=== PATIENT | male | born 1955 | race Caucasian/White ===

== ENCOUNTER 2018-01-10 11:29 | Emergency (ER) | payer MEDICARE, MEDICAID ==
[~2018-01-10] VITALS: Ht 175.3 cm; Wt 84.1 kg
[~2018-01-10 11:29] MED LIST: AMOX-580 PO; NORCO10T PO
[2018-01-10 11:48] VITALS: BP 133/67
== END 2018-01-10 14:50 | disposition home or self-care (01) ==
LOC: ER 11:31
DX: M54.5 Low back pain (principal); Z88.8 Allergy status to other drugs, medicaments and biological substances
CPT/HCPCS: 72190; 99284

== ENCOUNTER 2018-08-09 08:33 | Day surgery (SDC) | payer MEDICARE, MEDICAID ==
[~2018-08-09] VITALS: Ht 175.3 cm; Wt 88.6 kg
[2018-08-09 09:00] VITALS: BP 167/86
[2018-08-09] MEDS ORDERED: MIDAZolam 5mg/5ml vial ONE (09:14)
[2018-08-09] MEDS ORDERED: fentaNYL/PF 50MCG/1 ML 2ML syringe ONE (09:14)
[2018-08-09] MEDS ORDERED: ACET-812 PO (09:46)
[2018-08-09] MEDS ORDERED: POLY17PO10 PO (09:47)
[2018-08-09] MEDS ORDERED: ANUHCCR (09:50)
[2018-08-09] MEDS ORDERED: PRAMOXINE TOP (09:51)
[2018-08-09 10:22] VITALS: BP 113/69
[2018-08-09 10:32] VITALS: BP 124/81
[2018-08-09 10:42] VITALS: BP 123/60
[2018-08-09 10:52] VITALS: BP 119/69
== END 2018-08-09 11:22 | disposition home or self-care (01) ==
LOC: GI LAB 08:33
PROVIDERS: ATTEND Internal Medicine Gastroenterology
DX: D12.8 Benign neoplasm of rectum (principal); D12.3 Benign neoplasm of transverse colon; K57.30 Diverticulosis of large intestine without perforation or abscess without bleeding; G80.8 Other cerebral palsy; Z90.49 Acquired absence of other specified parts of digestive tract; Z79.891 Long term (current) use of opiate analgesic; Z79.899 Other long term (current) drug therapy; Z88.8 Allergy status to other drugs, medicaments and biological substances; Z98.890 Other specified postprocedural states; Z83.3 Family history of diabetes mellitus
CPT/HCPCS: 45385; 99153; G0500; J2250; J3010; J7030; 88305; A4620

== ENCOUNTER 2018-11-19 14:52 | Inpatient (IN) | payer MEDICARE, MEDICAID ==
[~2018-11-19] VITALS: Ht 175.3 cm; Wt 86.4 kg
[~2018-11-19 14:52] MED LIST changes: +ACET-812 PO; -AMOX-580 PO; +ANUHCCR RC; -NORCO10T PO; +POLY17PO10 PO; +PRAMOXINE TOP
[2018-11-19] MEDS ORDERED: acetaminophen 325mg tablet PO STA (16:37)
[2018-11-19] MEDS ORDERED: normal saline 1000ML IV soln IV ONE (16:40)
[2018-11-19] MEDS ORDERED: methylPREDNISolone sod succ 125mg/2ml vial IV ONE (16:40)
[2018-11-19] MEDS ORDERED: ipratropium/albuterol 3ml nebule NEB ONE (16:40)
[2018-11-19 16:59] LABS: BASOPHILS # (AUTO) 0.2 X10'3 (0-0.2); BASOPHILS % (AUTO) 1.8 % (0-1); EOSINOPHILS % (AUTO) 0.4 % (0-6); HEMATOCRIT 46.5 % (42.0-52.0); HEMOGLOBIN 14.8 g/dl (14.0-17.9); LYMPHOCYTES # (AUTO) 0.8 X10'3 (1.1-4.8); MEAN CORPUSCULAR HEMOGLOBIN 27.2 PG (27.0-31.0); MEAN CORPUSCULAR HGB CONC 31.8 % (33.0-36.5); MEAN CORPUSCULAR VOLUME 85.5 FL (78-98); MEAN PLATELET VOLUME 8.9 FL (7.4-10.4); MONOCYTES # (AUTO) 1.4 X10'3 (0-0.9); MONOCYTES % (AUTO) 15.4 % (2-12); NEUTROPHILS # (AUTO) 6.6 X10'3 (1.8-7.7); NEUTROPHILS % (AUTO) 73.4 % (42-75); PLATELET COUNT 223 X10'3 (140-440); RED BLOOD COUNT 5.44 X10'6 (4.70-6.10); RED CELL DISTRIBUTION WIDTH 12.8 % (11.5-14.5)
[2018-11-19] MEDS ORDERED: levoFLOXACIN-Levaquin 750MG/D5 150 ML IV ONE (17:10)
[2018-11-19] MEDS ORDERED: oseltamivir phos 75mg capsule PO ONE (17:10)
[2018-11-19 17:24] LABS: MICROCYTOSIS 1+; PLATELET ESTIMATE NORMAL; TOTAL CELLS COUNTED 100
[2018-11-19 17:25] LABS: ALANINE AMINOTRANSFERASE 56 U/L (12-78); ALBUMIN 2.8 G/DL (3.4-5.0); ALBUMIN/GLOBULIN RATIO 0.7 (1.1-1.5); ALKALINE PHOSPHATASE 154 IU/L (46-116); ANION GAP 11 (8-16); ASPARTATE AMINO TRANSFERASE 37 U/L (10-37); BILIRUBIN,TOTAL 0.8 MG/DL (0.1-1.0); BLOOD UREA NITROGEN 12 MG/DL (7-18); BUN/CREATININE RATIO 17.1 (5.4-32.0); CALCIUM 8.4 MG/DL (8.5-10.1); CHLORIDE 99 MMOL/L (99-107); GLUCOSE 94 MG/DL (70-104); POTASSIUM 3.1 MMOL/L (3.5-5.1); SODIUM 138 MMOL/L (135-145); TOTAL CARBON DIOXIDE 28.5 MMOL/L (24-32); TOTAL PROTEIN 7.1 G/DL (6.4-8.2); eGFR > 90 ML/MIN
[2018-11-19] MEDS ORDERED: ondansetron/PF 4mg/2ml inj IV PRN (17:50)
[2018-11-19] MEDS ORDERED: HYDROcodone/acetaminophen 5mg/325mg tablet PO PRN (17:50)
[2018-11-19] MEDS ORDERED: magnesium hydroxide 30ml (MOM) UD suspension PO PRN (17:50)
[2018-11-19] MEDS ORDERED: HYDROcodone/acetaminophen 10/325mg tab PO PRN (17:50)
[2018-11-19] MEDS ORDERED: acetaminophen 325mg tablet PO PRN ×2 (17:50)
[2018-11-19] MEDS ORDERED: potassium Cl 40MEQ/NS 500ml 500 ML IV PRN ×2 (17:50)
[2018-11-19] MEDS ORDERED: mag hydrox/Alum hydrox/simeth 30ml oral suspension PO PRN (17:50)
[2018-11-19] MEDS ORDERED: potassium Cl 20 mEq SR tablet PO PRN (17:50)
[2018-11-19] MEDS ORDERED: HC A30CR12 RC (18:12)
[2018-11-19] MEDS ORDERED: albuterol 2.5 MG/3 ML nebule NEB ONE (18:40)
[2018-11-19] MEDS: normal saline 1000ml 1,000 ML IV SCH (19:04)
[2018-11-19 19:17] LABS: CLARITY,URINE CLEAR (Clear); COLOR,URINE YELLOW (Yellow); GLUCOSE, URINE NEGATIVE (Neg); KETONES,URINE >=80 mg/dl (Neg); NITRITES, URINE NEGATIVE (Neg); OCCULT BLOOD,URINE MODERATE (Neg); PROTEIN,URINE 30 mg/dl (Neg); UA COLLECTION TYPE CLN CATCH MIDSTREAM
[2018-11-19 19:18] LABS: LEUKOCYTE ESTERASE ,URINE NEGATIVE (Neg)
[2018-11-19 19:19] LABS: WBC,URINE 0-4 /HPF (0-4)
[2018-11-19 19:20] LABS: BACTERIA,URINE FEW /HPF (Neg); MUCUS STRANDS FEW /LPF (Neg); SQUAMOUS EPITHELIAL CELL,UR FEW /LPF (FEW)
[2018-11-19] MEDS ORDERED: albuterol 2.5 MG/3 ML nebule NEB PRN (20:50)
[2018-11-19] MEDS ORDERED: non-formulary drug (Acetaminophen (Tylenol Extra Strength) 1 TABLET) PO PRN (20:50)
[2018-11-19] MEDS ORDERED: polyethylene glycol 3350 17gm powd pack PO PRN (20:50)
[2018-11-19] MEDS ORDERED: temazepam 15mg capsule PO PRN (21:00)
[2018-11-19] MEDS ORDERED: benzonatate 100mg capsule PO PRN (22:25)
--- NOTE | 2018-11-19 22:55 | NUR ---
Received report from Amparo GONZALEZ. Room ready, waiting for patient to arrive.
[2018-11-20] VITALS: BP 125/71
[2018-11-20 05:31] LABS: BASOPHILS % (AUTO) 0.1 % (0-1); EOSINOPHILS % (AUTO) 0.1 % (0-6); HEMATOCRIT 37.4 % (42.0-52.0); HEMOGLOBIN 12.7 g/dl (14.0-17.9); LYMPHOCYTES # (AUTO) 0.4 X10'3 (1.1-4.8); LYMPHOCYTES % (AUTO) 7.1 % (21-51); MEAN CORPUSCULAR HEMOGLOBIN 28.8 PG (27.0-31.0); MEAN CORPUSCULAR VOLUME 84.7 FL (78-98); MEAN PLATELET VOLUME 9.3 FL (7.4-10.4); MONOCYTES # (AUTO) 0.1 X10'3 (0-0.9); MONOCYTES % (AUTO) 2.7 % (2-12); NEUTROPHILS # (AUTO) 4.9 X10'3 (1.8-7.7); PLATELET COUNT 186 X10'3 (140-440); RED BLOOD COUNT 4.41 X10'6 (4.70-6.10); RED CELL DISTRIBUTION WIDTH 12.9 % (11.5-14.5); WHITE BLOOD COUNT 5.4 X10'3 (4.5-11.0)
[2018-11-20 05:56] LABS: ALBUMIN 2.2 G/DL (3.4-5.0); ANION GAP 12 (8-16); BLOOD UREA NITROGEN 11 MG/DL (7-18); CALCIUM 7.7 MG/DL (8.5-10.1); CHLORIDE 107 MMOL/L (99-107); CREATININE 0.55 MG/DL (0.60-1.10); GLUCOSE 156 MG/DL (70-104); POTASSIUM 3.8 MMOL/L (3.5-5.1); SODIUM 141 MMOL/L (135-145); TOTAL CARBON DIOXIDE 21.7 MMOL/L (24-32); eGFR > 90 ML/MIN
--- NOTE | 2018-11-20 06:30 | NUR ---
Patient in room [facility]. I have received report from LISA MADDEN and had the opportunity to ask questions and assume patient care.
--- NOTE | 2018-11-20 06:33 | NUR ---
Problems reprioritized. Patient report given, questions answered & plan of care reviewed with Machelle GONZALEZ.
[2018-11-20 07:00] VITALS: BP 120/65
[2018-11-20] MEDS: K and/or MAG REPLACEMENT MC SCH (08:00)
[2018-11-20] MEDS ORDERED: enoxaparin 40mg/0.4ml syringe SUBCUT SCH (08:00)
[2018-11-20] MEDS: enoxaparin 40mg/0.4ml syringe SQ SCH (08:40)
[2018-11-20] MEDS: normal saline 1000ml 1,000 ML IV SCH (10:26)
[2018-11-20 11:18] VITALS: BP 112/60
[2018-11-20] MEDS: levoFLOXACIN 750MG TABLET PO SCH (11:40)
--- NOTE | 2018-11-20 18:30 | NUR ---
Patient in room [facility]. I have received report from LISA Sanchez and had the opportunity to ask questions and assume patient care.
--- NOTE | 2018-11-20 18:30 | NUR ---
Problems reprioritized. Patient report given, questions answered & plan of care reviewed with PT, RN.
[2018-11-20 19:30] VITALS: BP 133/77
[2018-11-20] MEDS: lactobacillus rhamnosus 10,000 MMU CELLS/CAPSULE PO SCH (21:06)
[2018-11-21] VITALS: BP 124/47
[2018-11-21 05:23] LABS: ANION GAP 11 (8-16); BLOOD UREA NITROGEN 17 MG/DL (7-18); BUN/CREATININE RATIO 28.8 (5.4-32.0); CALCIUM 7.6 MG/DL (8.5-10.1); CHLORIDE 108 MMOL/L (99-107); CREATININE 0.59 MG/DL (0.60-1.10); GLUCOSE 130 MG/DL (70-104); POTASSIUM 3.3 MMOL/L (3.5-5.1); SODIUM 143 MMOL/L (135-145); TOTAL CARBON DIOXIDE 24.4 MMOL/L (24-32); eGFR > 90 ML/MIN
[2018-11-21] MEDS: normal saline 1000ml 1,000 ML IV SCH ×2 (05:30→21:16)
[2018-11-21 05:31] LABS: BASOPHILS % (AUTO) 0.1 % (0-1); EOSINOPHILS % (AUTO) 0 % (0-6); HEMATOCRIT 35.7 % (42.0-52.0); HEMOGLOBIN 12.3 g/dl (14.0-17.9); LYMPHOCYTES # (AUTO) 1.3 X10'3 (1.1-4.8); LYMPHOCYTES % (AUTO) 16.7 % (21-51); MEAN CORPUSCULAR HEMOGLOBIN 28.9 PG (27.0-31.0); MEAN CORPUSCULAR HGB CONC 34.3 % (33.0-36.5); MEAN CORPUSCULAR VOLUME 84.2 FL (78-98); MEAN PLATELET VOLUME 9.2 FL (7.4-10.4); MONOCYTES # (AUTO) 0.9 X10'3 (0-0.9); MONOCYTES % (AUTO) 12.2 % (2-12); NEUTROPHILS # (AUTO) 5.4 X10'3 (1.8-7.7); PLATELET COUNT 261 X10'3 (140-440); RED BLOOD COUNT 4.25 X10'6 (4.70-6.10); RED CELL DISTRIBUTION WIDTH 12.8 % (11.5-14.5); WHITE BLOOD COUNT 7.6 X10'3 (4.5-11.0)
--- NOTE | 2018-11-21 06:30 | NUR ---
Patient in room [facility]. I have received report from Pat RN and had the opportunity to ask questions and assume patient care.
--- NOTE | 2018-11-21 06:30 | NUR ---
report given to LISA Massey
[2018-11-21 07:00] VITALS: BP 102/46
[2018-11-21] MEDS: K and/or MAG REPLACEMENT MC SCH (08:00)
[2018-11-21] MEDS: lactobacillus rhamnosus 10,000 MMU CELLS/CAPSULE PO SCH ×2 (09:05→19:59)
[2018-11-21] MEDS: potassium Cl 20 mEq SR tablet PO PRN ×2 (09:06→19:59)
[2018-11-21] MEDS: enoxaparin 40mg/0.4ml syringe SQ SCH (09:07)
--- NOTE | 2018-11-21 10:50 | NUR ---
Heel protectors applied on patient's bilateral heels per patient's request. Family at bedside
[2018-11-21 11:00] VITALS: BP 101/55
[2018-11-21] MEDS: levoFLOXACIN 750MG TABLET PO SCH (11:25)
--- NOTE | 2018-11-21 18:36 | NUR ---
Problems reprioritized. Patient report given, questions answered & plan of care reviewed with Montserrat GONZALEZ.
--- NOTE | 2018-11-21 18:46 | NUR ---
Patient in room [facility]. I have received report from Darlin GONZALEZ and had the opportunity to ask questions and assume patient care.
[2018-11-21 20:00] VITALS: BP 116/65
--- NOTE | 2018-11-21 21:30 | NUR ---
pt has strong cough but can't always get sectrions all the way out. Set up suction with pollo at bedside to help collect secretions.
[2018-11-21 23:00] VITALS: BP 112/63
--- NOTE | 2018-11-22 06:20 | NUR ---
Problems reprioritized. Patient report given, questions answered & plan of care reviewed with Shilpa GONZALEZ. Pt currently asleep on his left side with no signs of distress.
--- NOTE | 2018-11-22 06:22 | NUR ---
Patient in room [facility]. I have received report from Montserrat GONZALEZ and had the opportunity to ask questions and assume patient care.
[2018-11-22 06:33] LABS: ANION GAP 8 (8-16); BLOOD UREA NITROGEN 10 MG/DL (7-18); BUN/CREATININE RATIO 17.9 (5.4-32.0); CALCIUM 7.5 MG/DL (8.5-10.1); CHLORIDE 107 MMOL/L (99-107); CREATININE 0.56 MG/DL (0.60-1.10); GLUCOSE 91 MG/DL (70-104); POTASSIUM 3.8 MMOL/L (3.5-5.1); SODIUM 140 MMOL/L (135-145); TOTAL CARBON DIOXIDE 25.5 MMOL/L (24-32); eGFR > 90 ML/MIN
[2018-11-22 06:37] LABS: BASOPHILS # (AUTO) 0.1 X10'3 (0-0.2); BASOPHILS % (AUTO) 0.9 % (0-1); EOSINOPHILS # (AUTO) 0.1 X10'3 (0-0.9); HEMATOCRIT 34.7 % (42.0-52.0); HEMOGLOBIN 11.9 g/dl (14.0-17.9); LYMPHOCYTES # (AUTO) 1.9 X10'3 (1.1-4.8); LYMPHOCYTES % (AUTO) 33.8 % (21-51); MEAN CORPUSCULAR HEMOGLOBIN 29.1 PG (27.0-31.0); MEAN CORPUSCULAR HGB CONC 34.4 % (33.0-36.5); MEAN CORPUSCULAR VOLUME 84.4 FL (78-98); MEAN PLATELET VOLUME 9.2 FL (7.4-10.4); MONOCYTES % (AUTO) 17.4 % (2-12); NEUTROPHILS # (AUTO) 2.6 X10'3 (1.8-7.7); NEUTROPHILS % (AUTO) 46.9 % (42-75); PLATELET COUNT 265 X10'3 (140-440); RED BLOOD COUNT 4.11 X10'6 (4.70-6.10); RED CELL DISTRIBUTION WIDTH 12.6 % (11.5-14.5); WHITE BLOOD COUNT 5.7 X10'3 (4.5-11.0)
[2018-11-22 07:00] VITALS: BP 108/51
[2018-11-22] MEDS: K and/or MAG REPLACEMENT MC SCH (08:00)
[2018-11-22] MEDS: lactobacillus rhamnosus 10,000 MMU CELLS/CAPSULE PO SCH ×2 (08:55→19:33)
[2018-11-22] MEDS: enoxaparin 40mg/0.4ml syringe SQ SCH (08:56)
[2018-11-22 11:00] VITALS: BP 134/77
[2018-11-22] MEDS: levoFLOXACIN 750MG TABLET PO SCH (12:27)
[2018-11-22] MEDS ORDERED: albuterol 2.5 MG/3 ML nebule NEB PRN (13:15)
--- NOTE | 2018-11-22 15:00 | NUR ---
RT paged for breathing tx per patient's mom request to help with the cough
--- NOTE | 2018-11-22 18:25 | NUR ---
Patient in room [facility]. I have received report from Shilpa GONZALEZ and had the opportunity to ask questions and assume patient care. Pt sitting up in bed eating dinner with caregiver at bedside assisting in feeding. Pt is A/O with no signs of distress. Will continue to monitor.
--- NOTE | 2018-11-22 18:28 | NUR ---
Problems reprioritized. Patient report given, questions answered & plan of care reviewed with Montserrat GONZALEZ.
[2018-11-22] MEDS: guaiFENesin ER 600mg tablet PO SCH (19:33)
[2018-11-22 20:00] VITALS: BP 115/72
[2018-11-22 23:30] VITALS: BP 111/57
[2018-11-23 05:56] LABS: ALBUMIN 2.1 G/DL (3.4-5.0); ANION GAP 7 (8-16); BLOOD UREA NITROGEN 8 MG/DL (7-18); BUN/CREATININE RATIO 12.3 (5.4-32.0); CALCIUM 7.7 MG/DL (8.5-10.1); CHLORIDE 107 MMOL/L (99-107); CREATININE 0.65 MG/DL (0.60-1.10); GLUCOSE 95 MG/DL (70-104); SODIUM 140 MMOL/L (135-145); TOTAL CARBON DIOXIDE 25.6 MMOL/L (24-32); eGFR > 90 ML/MIN
[2018-11-23 05:59] LABS: BASOPHILS # (AUTO) 0.1 X10'3 (0-0.2); BASOPHILS % (AUTO) 1.2 % (0-1); EOSINOPHILS # (AUTO) 0.1 X10'3 (0-0.9); EOSINOPHILS % (AUTO) 2.3 % (0-6); HEMATOCRIT 37.5 % (42.0-52.0); HEMOGLOBIN 12.7 g/dl (14.0-17.9); LYMPHOCYTES # (AUTO) 1.9 X10'3 (1.1-4.8); LYMPHOCYTES % (AUTO) 31.2 % (21-51); MEAN CORPUSCULAR HEMOGLOBIN 28.4 PG (27.0-31.0); MEAN CORPUSCULAR HGB CONC 33.9 % (33.0-36.5); MEAN CORPUSCULAR VOLUME 83.7 FL (78-98); MEAN PLATELET VOLUME 8.7 FL (7.4-10.4); MONOCYTES % (AUTO) 15.3 % (2-12); NEUTROPHILS # (AUTO) 3.1 X10'3 (1.8-7.7); PLATELET COUNT 335 X10'3 (140-440); RED BLOOD COUNT 4.49 X10'6 (4.70-6.10); RED CELL DISTRIBUTION WIDTH 13.1 % (11.5-14.5); WHITE BLOOD COUNT 6.2 X10'3 (4.5-11.0)
--- NOTE | 2018-11-23 06:25 | NUR ---
Problems reprioritized. Patient report given, questions answered & plan of care reviewed with Mary Kay GONZALEZ.
[2018-11-23] MEDS: K and/or MAG REPLACEMENT MC SCH (06:33)
--- NOTE | 2018-11-23 06:42 | NUR ---
Patient in room [facility]. I have received report from Montserrat GONZALEZ and had the opportunity to ask questions and assume patient care.
[2018-11-23] MEDS: guaiFENesin ER 600mg tablet PO SCH (07:06)
[2018-11-23] MEDS: lactobacillus rhamnosus 10,000 MMU CELLS/CAPSULE PO SCH (07:06)
[2018-11-23] MEDS: enoxaparin 40mg/0.4ml syringe SQ SCH (07:07)
[2018-11-23 08:00] VITALS: BP 128/66
[2018-11-23] MEDS ORDERED: ALBU8HFA PO (09:59)
[2018-11-23] MEDS ORDERED: GUAI600T45 PO (09:59)
[2018-11-23] MEDS ORDERED: BENZ-16 PO (09:59)
[2018-11-23] MEDS ORDERED: LEVO750T21 PO (09:59)
[2018-11-23] MEDS ORDERED: ALB0.5UD IH (10:06)
[2018-11-23] MEDS: levoFLOXACIN 750MG TABLET PO SCH (11:05)
--- NOTE | 2018-11-23 11:19 | NUR ---
D/C instructions reviewed with pt and mom. Pt and mom have no questions regarding D/C instructions. Pt left in w/c with all belongings and staff escort to car. Pt wanted bedside delivery but then decided that they would just go pick up operator the medications from [facility] pharmacy as the personal care service provider is only available to work till 1200. Call placed to Ish from [facility] bedside to inform.
== END 2018-11-23 11:24 | disposition home health service (06) | DRG 178 ==
LOC: ER 14:54 → ED HOLD 17:46 → EDBEDREQ 22:00 → SUR 3N 23:00
PROVIDERS: ADMIT Hospitalist; ATTEND Family Medicine
DX: J69.0 Pneumonitis due to inhalation of food and vomit (principal); E44.0 Moderate protein-calorie malnutrition; N17.9 Acute kidney failure, unspecified; N18.9 Chronic kidney disease, unspecified; G80.9 Cerebral palsy, unspecified; E87.6 Hypokalemia; Z99.3 Dependence on wheelchair; Z90.49 Acquired absence of other specified parts of digestive tract; Z88.8 Allergy status to other drugs, medicaments and biological substances; Z79.899 Other long term (current) drug therapy; Z68.28 Body mass index [BMI] 28.0-28.9, adult
CPT/HCPCS: 36415; 71045; 80048; 80053; 81001; 83605; 84145; 85025; 87040; 87070; 87502; 87503; 93005; 94640; 94760; 96365; 96375; 97110; 97161; 97530; 99285; G0378; J1650; J1956; J2930; J3480; J7030

== ENCOUNTER 2019-04-20 09:46 | Emergency (ER) | payer MEDICARE, MEDICAID ==
[~2019-04-20] VITALS: Ht 175.3 cm; Wt 75.5 kg
[~2019-04-20 09:46] MED LIST changes: +GUAI600T45 PO; +HC A30CR12 RC; -PRAMOXINE TOP
[2019-04-20 10:43] LABS: BASOPHILS % (AUTO) 0.6 % (0-1); EOSINOPHILS % (AUTO) 0.9 % (0-6); HEMATOCRIT 47.4 % (42.0-52.0); HEMOGLOBIN 15.5 g/dl (14.0-17.9); LYMPHOCYTES # (AUTO) 1.1 X10'3 (1.1-4.8); LYMPHOCYTES % (AUTO) 20.7 % (21-51); MEAN CORPUSCULAR HEMOGLOBIN 26.5 PG (27.0-31.0); MEAN CORPUSCULAR HGB CONC 32.7 g/dL (33.0-36.5); MEAN CORPUSCULAR VOLUME 81.3 FL (78-98); MEAN PLATELET VOLUME 9.5 FL (7.4-10.4); MONOCYTES # (AUTO) 0.6 X10'3 (0-0.9); MONOCYTES % (AUTO) 11.6 % (2-12); NEUTROPHILS # (AUTO) 3.6 X10'3 (1.8-7.7); NEUTROPHILS % (AUTO) 66.2 % (42-75); PLATELET COUNT 227 X10'3 (140-440); RED BLOOD COUNT 5.83 X10'6 (4.70-6.10); RED CELL DISTRIBUTION WIDTH 14.1 % (11.5-14.5); WHITE BLOOD COUNT 5.4 X10'3 (4.5-11.0)
[2019-04-20 10:53] LABS: PARTIAL THROMBOPLASTIN TIME 31 SECONDS (22-32)
[2019-04-20 10:55] LABS: ALANINE AMINOTRANSFERASE 26 U/L (12-78); ALBUMIN 3.3 G/DL (3.4-5.0); ALBUMIN/GLOBULIN RATIO 0.9 (1.1-1.5); ALKALINE PHOSPHATASE 100 IU/L (46-116); ANION GAP 4 (8-16); ASPARTATE AMINO TRANSFERASE 18 U/L (10-37); BILIRUBIN,TOTAL 0.7 MG/DL (0.1-1.0); BLOOD UREA NITROGEN 12 MG/DL (7-18); BUN/CREATININE RATIO 17.4 (5.4-32.0); CALCIUM 8.6 MG/DL (8.5-10.1); CHLORIDE 106 MMOL/L (99-107); CREATININE 0.69 MG/DL (0.60-1.10); GLUCOSE 103 MG/DL (70-104); POTASSIUM 4.1 MMOL/L (3.5-5.1); SODIUM 139 MMOL/L (135-145); TOTAL CARBON DIOXIDE 28.7 MMOL/L (24-32); TOTAL PROTEIN 6.9 G/DL (6.4-8.2); eGFR > 90 ML/MIN
[2019-04-20 12:26] VITALS: BP 142/87
== END 2019-04-20 13:10 | disposition home or self-care (01) ==
LOC: ER 09:46
DX: R42 Dizziness and giddiness (principal); R07.9 Chest pain, unspecified; Z88.8 Allergy status to other drugs, medicaments and biological substances; Z79.899 Other long term (current) drug therapy
CPT/HCPCS: 36415; 71045; 80053; 84484; 85025; 85610; 85730; 93005; 99284

== ENCOUNTER 2019-08-29 16:39 | Emergency (ER) | payer MEDICARE, MEDICAID ==
[~2019-08-29] VITALS: Ht 175.3 cm; Wt 86.0 kg
[2019-08-29] MEDS ORDERED: AZIT250T2 PO (17:13)
[2019-08-29] MEDS ORDERED: azithromycin 250mg tablet PO ONE (17:20)
--- NOTE | 2019-08-29 17:44 | NUR ---
CALL AT THIS TIME TO [facility] FOR TRANSPORTATION SET UP. ABE TO CALL BACK WITH ETA OF ORDER TAKERS SUPERVISOR.
--- NOTE | 2019-08-29 17:49 | NUR ---
Spoke with Mary from [facility] via telephone, states she will arrange transportation for patient and will call back with ETA of picker feeder.
[2019-08-29 19:24] VITALS: BP 134/92
== END 2019-08-29 19:26 | disposition home or self-care (01) ==
LOC: ER 16:39
DX: J20.9 Acute bronchitis, unspecified (principal); Z88.8 Allergy status to other drugs, medicaments and biological substances; Z79.899 Other long term (current) drug therapy
CPT/HCPCS: 71045; 99283

== ENCOUNTER 2020-08-28 22:35 | Emergency (ER) | payer MEDICARE, MEDICAID ==
[~2020-08-28] VITALS: Ht 175.3 cm; Wt 88.6 kg
--- NOTE | 2020-08-28 22:53 | NUR ---
pt caregiver fidel: [phone]
[2020-08-28 23:07] LABS: HEMATOCRIT 48.3 % (42.0-52.0); HEMOGLOBIN 16.3 g/dl (14.0-17.9); MEAN CORPUSCULAR HEMOGLOBIN 27.9 PG (27.0-31.0); MEAN CORPUSCULAR HGB CONC 33.7 g/dL (33.0-36.5); MEAN CORPUSCULAR VOLUME 82.8 FL (78-98); MEAN PLATELET VOLUME 9.1 FL (7.4-10.4); PLATELET COUNT 224 X10'3 (140-440); RED BLOOD COUNT 5.83 X10'6 (4.70-6.10); RED CELL DISTRIBUTION WIDTH 14.6 % (11.5-14.5); WHITE BLOOD COUNT 5.5 X10'3 (4.5-11.0)
[2020-08-28 23:22] LABS: ALANINE AMINOTRANSFERASE 36 U/L (12-78); ALBUMIN 3.4 G/DL (3.4-5.0); ALKALINE PHOSPHATASE 92 IU/L (46-116); ANION GAP 5 (8-16); ASPARTATE AMINO TRANSFERASE 19 U/L (10-37); BILIRUBIN,TOTAL 0.5 MG/DL (0.1-1.0); BLOOD UREA NITROGEN 12 MG/DL (7-18); BUN/CREATININE RATIO 19.7 (5.4-32.0); CALCIUM 8.4 MG/DL (8.5-10.1); CHLORIDE 107 MMOL/L (99-107); CREATININE 0.61 MG/DL (0.60-1.10); GLUCOSE 88 MG/DL (70-104); POTASSIUM 3.4 MMOL/L (3.5-5.1); SODIUM 140 MMOL/L (135-145); TOTAL CARBON DIOXIDE 28.4 MMOL/L (24-32); TOTAL PROTEIN 6.8 G/DL (6.4-8.2); eGFR > 90 ML/MIN
[2020-08-28 23:23] LABS: TOTAL CELLS COUNTED 100
[2020-08-28 23:24] LABS: PLATELET ESTIMATE NORMAL
--- NOTE | 2020-08-28 23:39 | NUR ---
TRIED CALLING [facility] THEY DIDNT ANSWER AND WHEN I TRIED TO LEAVE A MESSAGE MAILBOX WAS FULL
--- NOTE | 2020-08-28 23:44 | NUR ---
CALLED PT CAREGIVER [facility]NO[facility] TO GIVE UPDATE ON PT BEING DISCHARGE READY. PT CAREGIVER HAS NO WAY TO GET PT POWER CHAIR HERE, ATTEMPTING TO HAVE PREVIOUS [facility] PICK PT UP AND TAKE HOME. PT IS AGREEABLE TO PLAN.
[2020-08-29 00:48] VITALS: BP 114/66
== END 2020-08-29 00:50 | disposition home or self-care (01) ==
LOC: ER 22:36
DX: R07.81 Pleurodynia (principal); R07.89 Other chest pain; R00.2 Palpitations; Z88.8 Allergy status to other drugs, medicaments and biological substances; Z79.899 Other long term (current) drug therapy
CPT/HCPCS: 71045; 80053; 83880; 84484; 85025; 93005; 99285

== ENCOUNTER 2022-03-26 09:37 | Day surgery (SDC) | payer MEDICARE, MEDICAID ==
[~2022-03-26] VITALS: Ht 175.3 cm; Wt 62.7 kg
[2022-03-26 09:50] VITALS: BP 124/62
[2022-03-26] MEDS ORDERED: TYLENOL PO (10:11)
[2022-03-26] MEDS ORDERED: BACL-11 PO (10:12)
[2022-03-26] MEDS ORDERED: fentaNYL/PF 50MCG/1 ML 2ML syringe ONE (10:47)
[2022-03-26] MEDS ORDERED: MIDAZolam 1 MG/ML 5ML VIAL ONE ×2 (10:47)
[2022-03-26 11:30] VITALS: BP 98/64
[2022-03-26 11:40] VITALS: BP 101/57
[2022-03-26 11:50] VITALS: BP 98/54
[2022-03-26 12:00] VITALS: BP 105/56
== END 2022-03-26 12:20 | disposition home or self-care (01) ==
LOC: GI LAB 09:37
PROVIDERS: ATTEND Internal Medicine Gastroenterology
DX: Z12.11 Encounter for screening for malignant neoplasm of colon (principal); K57.30 Diverticulosis of large intestine without perforation or abscess without bleeding; I10 Essential (primary) hypertension; Z88.8 Allergy status to other drugs, medicaments and biological substances; Z79.899 Other long term (current) drug therapy; Z86.010 Personal history of colon polyps
CPT/HCPCS: G0105; G0500; J2250; J3010; J7030; Z7512; 45378; 99152; 99153; A4620

== ENCOUNTER 2022-05-18 13:43 | Outpatient (CLI) | payer MEDICARE, MEDICAID ==
[~2022-05-18 13:43] MED LIST changes: -ACET-812 PO; -ANUHCCR RC; +BACL-11 PO; -GUAI600T45 PO; -HC A30CR12 RC; -POLY17PO10 PO; +TYLENOL PO
== END 2022-05-18 23:59 | disposition home or self-care (01) ==
LOC: 64 CT 13:43
PROVIDERS: ATTEND Registered Nurse
DX: N20.0 Calculus of kidney (principal); N21.0 Calculus in bladder; N26.1 Atrophy of kidney (terminal); K44.9 Diaphragmatic hernia without obstruction or gangrene; M47.815 Spondylosis without myelopathy or radiculopathy, thoracolumbar region; K57.30 Diverticulosis of large intestine without perforation or abscess without bleeding; K40.90 Unilateral inguinal hernia, without obstruction or gangrene, not specified as recurrent; N40.0 Benign prostatic hyperplasia without lower urinary tract symptoms; Z90.49 Acquired absence of other specified parts of digestive tract
CPT/HCPCS: 72133

== ENCOUNTER 2022-11-08 14:10 | Outpatient (CLI) | payer MEDICARE, MEDICAID | END 2022-11-08 23:59 | disposition home or self-care (01) | LOC: RAD 14:10 | PROVIDERS: ATTEND Physician Assistant | DX: K57.30 Diverticulosis of large intestine without perforation or abscess without bleeding (principal); N20.2 Calculus of kidney with calculus of ureter; J98.11 Atelectasis; M79.89 Other specified soft tissue disorders; K44.9 Diaphragmatic hernia without obstruction or gangrene; N13.30 Unspecified hydronephrosis; Z90.49 Acquired absence of other specified parts of digestive tract | CPT/HCPCS: 74176 ==